=== PATIENT | female | born 1950 | race Caucasian/White ===

== ENCOUNTER 2016-06-23 12:03 | Emergency (ER) | payer OTHER ==
[~2016-06-23] VITALS: Ht 167.6 cm; Wt 71.5 kg
[~2016-06-23 12:03] MED LIST: ASPIRIN325 MG PO; CEFUROXIME500 MG PO; CELEXA40 MG PO; CHRONULAC,CEPHUL1 ML PO; COREG12.5 M1 PO; Citrate Of Magnesia PO; DESYREL 150 MG150 MG PO; DESYREL300 MG PO; GENERLAC10 GM/15 M PO; HYDROCODON-ACE1 EAC3 PO; K-DUR20 MEQ PO; LACTULOSE10 GM/151 PO; LEVAQUIN750 MG PO; MIRALAX17 GM PO; OXYCODONE HCL15 MG PO; PERCOCET 7.5-31 EACH PO; PROZAC10 MG PO; PROZAC20 MG PO; Prilosec PO; RELISTOR12 MG/0.1 SC; RESTORIL30 MG PO; Reglan PO; STOOL SOFTENER100 MG PO; TRAZODONE HCL300 MG PO; Trazodone HCl PO; XANAX XR1 MG PO; XANAX1 MG PO
[2016-06-23 13:08] LABS: EOSINOPHIL (%) 0 % (0-5); HEMATOCRIT 47.9 % (36.0-46.0); IMMATURE GRANULOCYTE (%) 0.3 % (0.0-0.7); INSTRUMENT ABS NEUTROPHIL CT 7.2 K/uL; LYMPHOCYTE COUNT 0.8 K/uL (1.0-2.8); MCH 29.6 PG (29.0-34.0); MCHC 33.4 G/DL (30.0-36.0); MCV 88.7 FL (83-99); MEAN PLAT.VOLUME 10.2 uM^3 (9.5-12.4); MONOCYTE (%) 13.1 % (3-12); MONOCYTE COUNT 1.2 K/uL (0-0.8); NEUTROPHIL (%) 77.5 % (45-76); NEUTROPHIL COUNT 7.2 K/uL (1.8-6.4); PLATELET COUNT 210 K/uL (156-360); RBC DIS.WIDTH-CV 12.8 % (11.8-14.6); RBC DIS.WIDTH-SD 41.7 % (39-53); WHITE BLOOD COUNT 9.2 K/uL (4.1-10.2)
[2016-06-23 13:21] LABS: CHLORIDE 101 mEq/L (99-109); POTASSIUM 4.4 mEq/L (3.7-5.4); SODIUM 139 mEq/L (136-147)
[2016-06-23 13:24] LABS: GLUCOSE 168 mg/dL (70-99)
[2016-06-23 13:25] LABS: ANION GAP 11 MEQ/L (2-14)
[2016-06-23 13:26] LABS: TOTAL BILIRUBIN 0.5 mg/dL (0.0-1.0)
[2016-06-23 13:27] LABS: ALKALINE PHOSPHATASE 70 IU/L (3-129); GFR ESTIMATE (CALCULATED) 53 mL/min/
[2016-06-23 13:28] LABS: UREA NITROGEN (BUN) 29 mg/dL (9-23)
[2016-06-23 13:31] LABS: LIPASE 10 U/L (1.0-51.0)
[2016-06-23] MEDS ORDERED: ZOFRAN4 MG PO (16:34)
[2016-06-23] MEDS ORDERED: BENTYL20 MG PO (16:34)
[2016-06-23 17:11] VITALS: BP 180/90
== END 2016-06-23 17:13 | disposition home or self-care (01) ==
LOC: EME → EDBD 12:03 → EME 12:03
PROVIDERS: Emergency Medicine
DX: R11.10 Vomiting, unspecified (principal); E86.0 Dehydration; Z93.3 Colostomy status; Z88.8 Allergy status to other drugs, medicaments and biological substances; I10 Essential (primary) hypertension; Z87.442 Personal history of urinary calculi; Z79.82 Long term (current) use of aspirin
CPT/HCPCS: 74022; 80053; 81003; 83690; 85025; 93005; 99281; 99285; J2270; J2405; J7030

== ENCOUNTER 2017-07-01 16:13 | Emergency (ER) | payer OTHER ==
[~2017-07-01] VITALS: Ht 167.6 cm; Wt 74.6 kg
[~2017-07-01 16:13] MED LIST changes: +BENTYL20 MG PO; +ZOFRAN4 MG PO
[2017-07-01 16:55] LABS: BASOPHIL (%) 0.9 % (0-1); BASOPHIL COUNT 0.1 K/uL (0-0.1); EOSINOPHIL (%) 3.3 % (0-5); EOSINOPHIL COUNT 0.2 K/uL (0-0.3); HEMATOCRIT 36.9 % (36.0-46.0); HEMOGLOBIN 12.1 G/DL (11.9-15.5); IMMATURE GRANULOCYTE (%) 0.2 % (0.0-0.7); LYMPHOCYTE (%) 26.1 % (15-42); LYMPHOCYTE COUNT 1.5 K/uL (1.0-2.8); MCH 29.8 PG (29.0-34.0); MCHC 32.8 G/DL (30.0-36.0); MCV 90.9 FL (83-99); MONOCYTE (%) 13.6 % (3-12); MONOCYTE COUNT 0.8 K/uL (0-0.8); NEUTROPHIL (%) 55.9 % (45-76); NEUTROPHIL COUNT 3.2 K/uL (1.8-6.4); PLATELET COUNT 257 K/uL (156-360); RBC DIS.WIDTH-CV 12.9 % (11.8-14.6); RBC DIS.WIDTH-SD 42.5 % (39-53); RED BLOOD COUNT 4.06 M/uL (3.80-5.20); WHITE BLOOD COUNT 5.8 K/uL (4.1-10.2)
[2017-07-01 17:09] LABS: CHLORIDE 103 mEq/L (99-109); POTASSIUM 4.3 mEq/L (3.7-5.4); SODIUM 138 mEq/L (136-147)
[2017-07-01 17:11] LABS: GLUCOSE 85 mg/dL (70-99)
[2017-07-01 17:13] LABS: APPEARANCE CLEAR ((CLEAR)); BILIRUBIN NEGATIVE; BLOOD NEGATIVE; COLOR YELLOW ((YELLOW)); GLUCOSE (STRIP) NEGATIVE; KETONES NEGATIVE; LEUKOCYTES NEGATIVE; NITRITE NEGATIVE; PROTEIN (STRIP) NEGATIVE; SPECIFIC GRAVITY 1.019 (1.000-1.030); UROBILINOGEN 0.2 MG/DL (0.2-1.0)
[2017-07-01 17:15] LABS: CREATININE 0.8 mg/dL (0.6-1.3); GFR ESTIMATE (CALCULATED) > 59 mL/min/
[2017-07-01 17:16] LABS: UREA NITROGEN (BUN) 19 mg/dL (9-23)
[2017-07-01 19:30] VITALS: BP 164/81
== END 2017-07-01 19:30 | disposition home or self-care (01) ==
LOC: EME 16:13
PROVIDERS: Emergency Medicine
DX: E86.0 Dehydration (principal); I10 Essential (primary) hypertension; Z87.442 Personal history of urinary calculi; F41.9 Anxiety disorder, unspecified; Z87.440 Personal history of urinary (tract) infections; Z79.891 Long term (current) use of opiate analgesic; Z79.82 Long term (current) use of aspirin; Z88.8 Allergy status to other drugs, medicaments and biological substances
CPT/HCPCS: 80048; 81003; 85025; 93005; 99281; 99285; J3010; J7030

== ENCOUNTER 2017-07-27 20:56 | Emergency (ER) | payer OTHER ==
[~2017-07-27] VITALS: Ht 167.6 cm; Wt 73.5 kg
[2017-07-27 21:36] LABS: HEMATOCRIT 36.1 % (36.0-46.0); HEMOGLOBIN 12.1 G/DL (11.9-15.5); MCH 29.7 PG (29.0-34.0); MCHC 33.5 G/DL (30.0-36.0); MCV 88.7 FL (83-99); RBC DIS.WIDTH-CV 12.6 % (11.8-14.6); RBC DIS.WIDTH-SD 41.1 % (39-53); RED BLOOD COUNT 4.07 M/uL (3.80-5.20); WHITE BLOOD COUNT 9.9 K/uL (4.1-10.2)
[2017-07-27 21:43] LABS: CHLORIDE 101 mEq/L (99-109); POTASSIUM 4.3 mEq/L (3.7-5.4)
[2017-07-27 21:44] LABS: SODIUM 134 mEq/L (136-147)
[2017-07-27 21:45] LABS: GLUCOSE 103 mg/dL (70-99)
[2017-07-27 21:49] LABS: GFR ESTIMATE (CALCULATED) 59 mL/min/
[2017-07-27 21:50] LABS: UREA NITROGEN (BUN) 23 mg/dL (9-23)
[2017-07-27 22:00] VITALS: BP 121/61
[2017-07-27 22:24] LABS: HEMATOLOGY COMMENT 1 SN; PLAT.SUFFICIENCY ADEQUATE; PLATELET COUNT 169 K/uL (156-360)
== END 2017-07-27 22:46 | disposition home or self-care (01) ==
LOC: EME → EDBD 20:56 → EME 20:56
PROVIDERS: Emergency Medicine
DX: T40.2X1A Poisoning by other opioids, accidental (unintentional), initial encounter (principal); G89.29 Other chronic pain; I10 Essential (primary) hypertension; F41.9 Anxiety disorder, unspecified; Z87.442 Personal history of urinary calculi; Z93.3 Colostomy status; Z79.82 Long term (current) use of aspirin; Z88.8 Allergy status to other drugs, medicaments and biological substances
CPT/HCPCS: 80048; 85027; 99281; 99283; J2310

== ENCOUNTER 2017-07-30 12:39 | Emergency (ER) | payer OTHER ==
[~2017-07-30] VITALS: Ht 167.6 cm; Wt 72.7 kg
[2017-07-30 13:28] LABS: BASOPHIL (%) 0.9 % (0-1); BASOPHIL COUNT 0.1 K/uL (0-0.1); EOSINOPHIL (%) 3.1 % (0-5); EOSINOPHIL COUNT 0.2 K/uL (0-0.3); HEMATOCRIT 35.9 % (36.0-46.0); HEMOGLOBIN 12.1 G/DL (11.9-15.5); IMMATURE GRANULOCYTE (%) 0.4 % (0.0-0.7); LYMPHOCYTE (%) 26.2 % (15-42); LYMPHOCYTE COUNT 1.4 K/uL (1.0-2.8); MCHC 33.7 G/DL (30.0-36.0); MCV 89.1 FL (83-99); MONOCYTE COUNT 0.6 K/uL (0-0.8); NEUTROPHIL (%) 59.4 % (45-76); NEUTROPHIL COUNT 3.3 K/uL (1.8-6.4); PLATELET COUNT 178 K/uL (156-360); RBC DIS.WIDTH-CV 12.7 % (11.8-14.6); RBC DIS.WIDTH-SD 41.8 % (39-53); RED BLOOD COUNT 4.03 M/uL (3.80-5.20); WHITE BLOOD COUNT 5.5 K/uL (4.1-10.2)
[2017-07-30 13:36] LABS: ALBUMIN 3.8 g/dL (3.2-4.8); CHLORIDE 106 mEq/L (99-109); POTASSIUM 3.9 mEq/L (3.7-5.4); SODIUM 141 mEq/L (136-147)
[2017-07-30 13:38] LABS: GLUCOSE 109 mg/dL (70-99)
[2017-07-30 13:39] LABS: TOTAL PROTEIN 6.9 g/dL (6.4-8.3)
[2017-07-30 13:40] LABS: TOTAL BILIRUBIN 0.2 mg/dL (0.0-1.0)
[2017-07-30 13:42] LABS: ALKALINE PHOSPHATASE 84 IU/L (3-129); CREATININE 0.9 mg/dL (0.6-1.3); GFR ESTIMATE (CALCULATED) > 59 mL/min/
[2017-07-30 13:43] LABS: UREA NITROGEN (BUN) 17 mg/dL (9-23)
[2017-07-30 13:44] LABS: AST (GOT) 21 IU/L (2-34)
[2017-07-30 13:45] LABS: ALT (GPT) 17 IU/L (3-49); LIPASE 75 U/L (1.0-51.0)
[2017-07-30 13:48] LABS: TROP-I INTERPRETATION NEGATIVE; TROPONIN-I < 0.01 ng/mL (0.0-0.30)
[2017-07-30 14:00] LABS: APPEARANCE CLEAR ((CLEAR)); BILIRUBIN NEGATIVE; BLOOD NEGATIVE; COLOR YELLOW ((YELLOW)); GLUCOSE (STRIP) NEGATIVE; KETONES NEGATIVE; LEUKOCYTES NEGATIVE; NITRITE NEGATIVE; PROTEIN (STRIP) NEGATIVE; SPECIFIC GRAVITY 1.023 (1.000-1.030); UCUL ADDED? NO; UROBILINOGEN 0.2 MG/DL (0.2-1.0)
[2017-07-30 16:06] VITALS: BP 169/83
== END 2017-07-30 17:18 | disposition left against medical advice (07) ==
LOC: EME 12:39
PROVIDERS: Emergency Medicine
DX: R41.0 Disorientation, unspecified (principal); R10.84 Generalized abdominal pain; F11.20 Opioid dependence, uncomplicated; R11.0 Nausea; R30.0 Dysuria; R42 Dizziness and giddiness; R06.02 Shortness of breath; I10 Essential (primary) hypertension; Z87.442 Personal history of urinary calculi; Z90.49 Acquired absence of other specified parts of digestive tract; Z90.710 Acquired absence of both cervix and uterus; Z93.3 Colostomy status; Z79.82 Long term (current) use of aspirin
CPT/HCPCS: 70450; 71046; 74177; 80053; 81003; 83690; 84484; 85025; 93005; 99281; 99285; J2405; J7040

== ENCOUNTER 2017-10-02 15:23 | Emergency (ER) | payer OTHER ==
[~2017-10-02] VITALS: Ht 167.6 cm; Wt 69.3 kg
[2017-10-02 16:15] LABS: BASOPHIL (%) 0.7 % (0-1); BASOPHIL COUNT 0.1 K/uL (0-0.1); EOSINOPHIL (%) 1.9 % (0-5); EOSINOPHIL COUNT 0.2 K/uL (0-0.3); HEMATOCRIT 38.3 % (36.0-46.0); HEMOGLOBIN 12.7 G/DL (11.9-15.5); IMMATURE GRANULOCYTE (%) 0.2 % (0.0-0.7); LYMPHOCYTE (%) 19.5 % (15-42); LYMPHOCYTE COUNT 1.7 K/uL (1.0-2.8); MCH 29.8 PG (29.0-34.0); MCHC 33.2 G/DL (30.0-36.0); MCV 89.9 FL (83-99); MONOCYTE (%) 13.1 % (3-12); MONOCYTE COUNT 1.1 K/uL (0-0.8); NEUTROPHIL (%) 64.6 % (45-76); NEUTROPHIL COUNT 5.6 K/uL (1.8-6.4); PLATELET COUNT 201 K/uL (156-360); RBC DIS.WIDTH-SD 42.7 % (39-53); RED BLOOD COUNT 4.26 M/uL (3.80-5.20); WHITE BLOOD COUNT 8.6 K/uL (4.1-10.2)
[2017-10-02 16:23] LABS: CHLORIDE 99 mEq/L (99-109); POTASSIUM 3.6 mEq/L (3.7-5.4); SODIUM 137 mEq/L (136-147)
[2017-10-02 16:25] LABS: GLUCOSE 104 mg/dL (70-99)
[2017-10-02 16:29] LABS: CREATININE 1.5 mg/dL (0.6-1.3); GFR ESTIMATE (CALCULATED) 37 mL/min/
[2017-10-02 16:30] LABS: UREA NITROGEN (BUN) 73 mg/dL (9-23)
[2017-10-02 16:37] LABS: TROP-I INTERPRETATION NEGATIVE; TROPONIN-I < 0.01 ng/mL (0.0-0.30)
[2017-10-02 17:38] VITALS: BP 113/59
== END 2017-10-02 17:39 | disposition home or self-care (01) ==
LOC: EME 15:23
PROVIDERS: Emergency Medicine
DX: F41.9 Anxiety disorder, unspecified (principal); I10 Essential (primary) hypertension; Z93.3 Colostomy status; Z87.442 Personal history of urinary calculi; Z79.82 Long term (current) use of aspirin; Z88.8 Allergy status to other drugs, medicaments and biological substances
CPT/HCPCS: 71045; 80048; 84484; 85025; 93005; 99281; 99284; J7040